=== PATIENT | male | born 1985 | race Caucasian/White ===

== ENCOUNTER 2018-01-13 19:36 | Emergency (ER) | payer SELFPAY ==
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
[2018-01-13 20:10] VITALS: BMI 25.2
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
[2018-01-14 02:45] VITALS: BP 124/75; PULSE 79; TEMP 98.1
--- NOTE | 2018-01-15 08:54 | EKG ---
Test Reason : Blood Pressure : / mmHG Vent. Rate : 067 BPM Atrial Rate : 067 BPM P-R Int : 142 ms QRS Dur : 088 ms QT Int : 380 ms P-R-T Axes : 071 076 058 degrees QTc Int : 401 ms NORMAL SINUS RHYTHM NORMAL ECG NO PREVIOUS ECGS AVAILABLE Confirmed by LULY CORDERO, MELVIN ([id number]) on 01/15/2018 8:53:51 AM Referred By: Confirmed By:MELVIN MAURICIO MD
== END 2018-01-14 04:03 | disposition home or self-care (01) ==
LOC: JER 19:36
DX: F10.10 Alcohol abuse, uncomplicated (principal)
CPT/HCPCS: 36415; 70450-TC; 70486-TC; 71046-TC-FY; 93005; 93010; 99282-25

== ENCOUNTER 2019-03-21 13:33 | Emergency (ER) | payer SELFPAY ==
[2019-03-21 13:44] VITALS: BP 105/54; PULSE 66; TEMP 98.3; BMI 24.3
--- NOTE | 2019-03-21 14:11 | PDOC ---
History of Present Illness - General Chief Complaint: Pain Stated Complaint: RT TOE INJURY Time Seen by Provider: 03/21/19 14:01 - History of Present Illness Initial Comments: 03/21/19 14:09 33-year-old male without comorbidities presents for a painful area on his right fifth toe x1 month without systemic symptoms Past History - Past Medical History Allergies/Adverse Reactions: Allergies Allergy/AdvReac Type Severity Reaction Status Date / Time No Known Allergies Allergy Verified 03/21/19 13:44 Cancer: No Cardiac Disorders: No CVA: No COPD: No DVT: No Dementia: No Diabetes: No - Psycho Social/Smoking Cessation Hx Smoking History: Current every day smoker Have you smoked in the past 12 months: Yes Number of Cigarettes Smoked Daily: 1 Information on smoking cessation initiated: No 'Breaking Loose' booklet given: 01/13/18 Hx Alcohol Use: No Drug/Substance Use Hx: Yes ([facility]) Substance Use Type: Alcohol, Marijuana Review of Systems - Review of Systems Constitutional: No: Fever *Physical Exam - Vital Signs Last Vital Signs Temp Pulse Resp BP Pulse Ox 98.3 F 66 16 105/54 L 100 03/21/19 13:41 03/21/19 13:41 03/21/19 13:41 03/21/19 13:41 03/21/19 13:41 - Physical Exam Comments: 03/21/19 14:10 There is a large wart on the dorsum of the right fifth toe with normal surrounding skin color and temperature Medical Decision Making - Medical Decision Making 03/21/19 14:10 Refer to podiatry Discharge - Discharge Information Problems reviewed: Yes Clinical Impression/Diagnosis: Warts of foot Condition: Stable Disposition: HOME - Admission No - Follow up/Referral Referrals: Vince Delgado MD [Non Staff, Medical] - - Patient Discharge Instructions Additional Instructions: Please follow-up with podiatry without fail in 1 to 2 days for further evaluation and treatment options. Return to the emergency room should symptoms worsen. - Post Discharge Activity
== END 2019-03-21 14:52 | disposition home or self-care (01) ==
LOC: JERFT 13:33
DX: B07.8 Other viral warts (principal); F17.210 Nicotine dependence, cigarettes, uncomplicated
CPT/HCPCS: 99281-25

== ENCOUNTER 2020-01-09 13:07 | Emergency (ER) | payer SELFPAY ==
[2020-01-09 13:22] VITALS: BP 103/57; PULSE 71; TEMP 98.2; BMI 24.3
[2020-01-09] MEDS ORDERED: DIPHTH,PERTUSS(ACELL),TET 0.5 ML DISP.SYRIN IM ONE ×3 (14:04→14:15)
--- NOTE | 2020-01-09 14:19 | PDOC ---
History of Present Illness - General Chief Complaint: Injury Stated Complaint: LF ARM INJURY (SPLINTER) Time Seen by Provider: 01/09/20 13:22 - History of Present Illness Initial Comments: 01/09/20 15:19 34-year-old male without comorbidities unsure of his current tetanus status presents for evaluation of a puncture wound of his left forearm patient states he was carrying a table and a large splinter punctured his left forearm. Past History - Medical History Allergies/Adverse Reactions: Allergies Allergy/AdvReac Type Severity Reaction Status Date / Time No Known Allergies Allergy Verified 03/21/19 13:44 Home Medications: Ambulatory Orders Cephalexin [Keflex] 500 mg PO QID #40 capsule 01/09/20 Cancer: No Cardiac Disorders: No CVA: No COPD: No DVT: No Dementia: No Diabetes: No - Psycho-Social/Smoking History Smoking History: Never smoked Have you smoked in the past 12 months: No Number of Cigarettes Smoked Daily: 1 Information on smoking cessation initiated: No 'Breaking Loose' booklet given: 01/13/18 - Substance Abuse Hx (Audit-C & DAST Scrn) How often the patient has a drink containing alcohol: Monthly or less Number of drinks the patient has on a typical day: 3 or 4 How often the patient has six or more drinks on one occasion: Never Score: In Men: 4 or > Positive; In Women: 3 or > Positive: 2 Screen Result (Pos requires Nsg. Audit-10AR): Negative In the last yr the pt used illegal drug/Rx for NonMed reason: No Score: Yes response is considered Positive: 0 Screen Result (Positive result requires Nsg. DAST-10): Negative *Physical Exam - Vital Signs Last Vital Signs Temp Pulse Resp BP Pulse Ox 98.2 F 71 16 103/57 L 100 01/09/20 13:20 01/09/20 13:20 01/09/20 13:20 01/09/20 13:20 01/09/20 13:20 - Physical Exam 01/09/20 15:20 There is a small puncture wound subcentimeter on the ulnar aspect of the left forearm the left forearm skin color and temperature otherwise normal there is firmness to the left forearm full range of motion of the elbow decreased supination and pronation decreased wrist flexion and extension full range of motion of the fingers decreased electrician control equipment strength 3 out of 5 no pain with passive motion of the elbow wrist forearm or fingers. Tenderness at the area of the puncture wound is appropriate. Neurovascular intact 2+ brisk capillary refill. ED Treatment Course - RADIOLOGY Radiology Studies Ordered: Category Date Time Status FOREARM- LEFT [RAD] Stat Radiology 01/09/20 14:04 Taken Medical Decision Making - Medical Decision Making 01/09/20 14:15 ORTHO CONSULTED Orthopedics came down to evaluate the patient patient safe to be discharged tetanus shot updated p.o. antibiotics prescribed. Patient will follow-up with orthopedics in 1 to 2 days for further evaluation and treatment options and return to the emergency room should symptoms worsen signs and symptoms of compartment syndrome were discussed in depth with patient understands I have reviewed the pathophysiology with the patient. They are in agreement with the treatment plan all questions were answered to their satisfaction. Understanding for follow-up without fail was also conveyed to the patient. Again they are in agreement. Discharge - Discharge Information Problems reviewed: Yes Clinical Impression/Diagnosis: Puncture wound of forearm, left Condition: Stable Disposition: HOME - Admission No - Additional Discharge Information Prescriptions: Cephalexin [Keflex] 500 mg PO QID #40 capsule - Follow up/Referral Referrals: Bean Cummings MD [Staff Physician] - - Patient Discharge Instructions Additional Instructions: Please take the antibiotics as directed. Return to the emergency room for worsening symptoms. Without fail follow-up with orthopedic surgery in 1 to 2 days for further evaluation and treatment options. Please keep the wound clean with soap and water and do not apply any ointment such as bacitracin or N eosporin. If you must go out and work please cover the wound with a dry sterile dressing such as a large Band-Aid. Tylenol and Motrin as directed for pain. Continue to elevate the arm and move the fingers as he was shown in the emergency room - Post Discharge Activity Work/Back to School Note: Back to Work
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
== END 2020-01-09 15:35 | disposition home or self-care (01) ==
LOC: JERFT 13:07
PROC: 3E0234Z Introduction of Serum, Toxoid and Vaccine into Muscle, Percutaneous Approach (ICD-10-PCS; principal; 2020-01-09)
DX: S51.842A Puncture wound with foreign body of left forearm, initial encounter (principal); W45.8XXA Other foreign body or object entering through skin, initial encounter
CPT/HCPCS: 73090-TC-LT-FY; 90715; 99283-25

== ENCOUNTER 2020-01-15 20:45 | Emergency (ER) | payer SELFPAY ==
--- NOTE | 2020-01-15 20:48 | PDOC ---
Rapid Medical Evaluation Time Seen by Provider: 01/15/20 20:46 Medical Evaluation: Allergies Allergy/AdvReac Type Severity Reaction Status Date / Time No Known Allergies Allergy Verified 03/21/19 13:44 01/15/20 20:46 I have performed a brief in-person evaluation of this patient. CC: left forearm pain x1 week PE: Scattered erythema to volar aspect of left forearm. FAROM. Orders: nothing Patient will proceed to ED for further evaluation. 01/15/20 20:47 01/15/20 20:48 Discharge Disposition - Diagnosis Left forearm pain - Referrals - Patient Instructions - Post Discharge Activity
[2020-01-15 20:49] VITALS: BMI 24.3
--- NOTE | 2020-01-15 21:45 | PDOC ---
*Physical Exam - Vital Signs Last Vital Signs Temp Pulse Resp BP Pulse Ox 99.0 F 77 18 107/64 99 01/15/20 20:46 01/15/20 20:46 01/15/20 20:46 01/15/20 20:46 01/15/20 20:46 Medical Decision Making - Medical Decision Making 01/15/20 21:45 Patient seen by the advanced practice provider under my supervision. Ancillary testing reviewed as necessary. I agree with plan as outlined by the advanced practice provider. Discharge - Discharge Information Problems reviewed: Yes Clinical Impression/Diagnosis: Left forearm pain - Follow up/Referral - Patient Discharge Instructions - Post Discharge Activity
--- NOTE | 2020-01-15 21:48 | PDOC ---
History of Present Illness - General Chief Complaint: Redness To Affected Area Stated Complaint: LT ARM INFECTION Time Seen by Provider: 01/15/20 20:46 History Source: Patient - History of Present Illness Initial Comments: 01/15/20 22:08 34-year-old male 1 week ago was carrying I wooden door reports splinter went to left forearm, patient reports he immediately felt pain to the left wrist. Patient has full range of motion to his wrist and able to make a fist with his left hand. Patient reports that he was seen for the splinter and was started on Keflex. Patient is concerned for bruising/hematoma to the left wrist. Past History - Medical History Allergies/Adverse Reactions: Allergies Allergy/AdvReac Type Severity Reaction Status Date / Time No Known Allergies Allergy Verified 03/21/19 13:44 Home Medications: Ambulatory Orders Cephalexin [Keflex] 500 mg PO QID #40 capsule 01/09/20 Cancer: No Cardiac Disorders: No CVA: No COPD: No DVT: No Dementia: No Diabetes: No - Psycho-Social/Smoking History Smoking History: Never smoked Have you smoked in the past 12 months: No Number of Cigarettes Smoked Daily: 1 'Breaking Loose' booklet given: 01/13/18 - Substance Abuse Hx (Audit-C & DAST Scrn) How often the patient has a drink containing alcohol: Never Score: In Men: 4 or > Positive; In Women: 3 or > Positive: 0 Screen Result (Pos requires Nsg. Audit-10AR): Negative In the last yr the pt used illegal drug/Rx for NonMed reason: Yes Score: Yes response is considered Positive: 1 Screen Result (Positive result requires Nsg. DAST-10): Positive *Physical Exam - Vital Signs Last Vital Signs Temp Pulse Resp BP Pulse Ox 99.0 F 77 18 107/64 99 01/15/20 20:46 01/15/20 20:46 01/15/20 20:46 01/15/20 20:46 01/15/20 20:46 - Physical Exam General Appearance: Yes: Appropriately Dressed Extremity: positive: Normal Capillary Refill, Normal Range of Motion, Other (hematoma to left wrist) Integumentary: positive: Ecchymosis (to left wrist brown in color. full rom to left hand / wrist able to make a fist) Neurologic: positive: Fully Oriented, Alert ED Progress Note - Progress Note Progress Note: 01/15/20 22:24 A: left wrist hematoma P: xray: negative Discharge - Discharge Information Problems reviewed: Yes Clinical Impression/Diagnosis: Traumatic hematoma of left wrist Qualifiers: Encounter type: initial encounter Qualified Code(s): S60.212A - Contusion of left wrist, initial encounter Disposition: HOME - Follow up/Referral - Patient Discharge Instructions Patient Printed Discharge Instructions: DI for Hematoma (Bruise) Additional Instructions: Apply ice to the area You may use a wrist splint for comfort An orthopedic referral was given to you Return to the emergency room for any worsening symptoms - Post Discharge Activity Work/Back to School Note: Back to Work
[2020-01-15 23:22] VITALS: BP 99/61; PULSE 60; TEMP 98
== END 2020-01-15 23:22 | disposition home or self-care (01) ==
LOC: JER 20:45
DX: S60.212A Contusion of left wrist, initial encounter (principal)
CPT/HCPCS: 73110-TC-LT-FY; 73130-TC-LT-FY; 99283-25

== ENCOUNTER 2022-09-29 08:31 | Emergency (ER) | payer SELFPAY ==
[2022-09-29 08:42] VITALS: BMI 22.5
[2022-09-29 11:58] LABS: SYPHILIS W/ RPR CONF NON-REACTIVE (NONREACTIVE)
[2022-09-29 14:35] LABS: HIV INTERPRETATION NEGATIVE (NEGATIVE)
[2022-09-29 15:01] VITALS: BP 110/81; PULSE 81; RESP 20; TEMP 98.9
== END 2022-09-29 15:12 | disposition short-term general hospital (02) ==
LOC: JER 08:31
DX: R51.9 Headache, unspecified (principal); R07.81 Pleurodynia; M25.562 Pain in left knee; S06.4X0A Epidural hemorrhage without loss of consciousness, initial encounter; S02.91XA Unspecified fracture of skull, initial encounter for closed fracture; Y04.8XXA Assault by other bodily force, initial encounter; Z20.822 Contact with and (suspected) exposure to COVID-19
CPT/HCPCS: 36415; 70450-TC; 73560-TC-RT-FY; 73590-TC-RT-FY; 86780; 87389; 87491; 87529; 87591; 99285-25; C9803-CS; U0003; U0005

== ENCOUNTER 2024-01-05 12:55 | Emergency (ER) | payer OTHER ==
[2024-01-05 13:05] VITALS: BP 121/68; PULSE 84; RESP 17; TEMP 98.8; BMI 22.8
[2024-01-05 20:46] LABS: HIV INTERPRETATION NEGATIVE (NEGATIVE)
== END 2024-01-05 14:32 | disposition home or self-care (01) ==
LOC: JERFT 12:55
DX: Z11.3 Encounter for screening for infections with a predominantly sexual mode of transmission (principal)
CPT/HCPCS: 36415; 86780; 86803; 87389; 87491; 87591; 99284-25